=== PATIENT | male | born 1985 | race Caucasian/White ===

== ENCOUNTER 2021-02-22 09:15 | Outpatient (CLI) | payer BC, SELFPAY ==
[2021-02-22 11:24] VITALS: BP 131/89; BP 134/74; PULSE 54; PULSE 67; RESP 19; RESP 20; TEMP 36.8; TEMP 36.9; O2SAT 100; O2SAT 99
== END 2021-02-22 09:16 | disposition home or self-care (01) ==
LOC: OPS 09:17
PROVIDERS: PCP Family Medicine; Visit Provider Physician Assistant
DX: U07.1 COVID-19 (principal)
CPT/HCPCS: 96365